=== PATIENT | male | born 2000 | race Caucasian/White ===

== ENCOUNTER 2021-12-31 23:16 | Emergency (ER) | payer OTHER ==
[~2021-12-31] VITALS: Ht 180.3 cm; Wt 102.1 kg
--- NOTE | 2021-12-31 23:30 | NUR ---
[id number] FROM [facility] C/O ETOH AND MISSED STEP FELL, LAC TO BACK OF HEAD. PT A/OX3;. TOLERATING R/A WELL WITH NO SOB.
--- NOTE | 2021-12-31 23:32 | NUR ---
DR. DAVID HERRERA AT PT'S BEDSIDE
[2021-12-31] MEDS ORDERED: LIDOCAINE MPF 1%-EPI 1:200,000 30 ML VIAL IJ ONE (23:38)
[2021-12-31] MEDS ORDERED: LIDOCAINE 1%-EPI 1:100,000 20 ML VIAL ONE (23:47)
[2021-12-31] MEDS ORDERED: IBUPROFEN 600 MG TABLET ONE (23:47)
[2021-12-31] MEDS ORDERED: ACETAMINOPHEN ES 500 MG TABLET ONE (23:47)
[2021-12-31] MEDS ORDERED: TDAP [DIPH/PERTUSSIS/TET] 0.5 ML VIAL IM ONE (23:48)
--- NOTE | 2021-12-31 23:50 | NUR ---
PT RETURNED TO ER BED [address]
--- NOTE | 2021-12-31 23:52 | NUR ---
[facility] AT PT'S BEDSIDE DOING WOUND CARE LAC ON PATIENT'S HEAD
--- NOTE | 2021-12-31 23:53 | NUR ---
[facility] AT PT'S BEDSIDE
[2022-01-01] MEDS: ACETAMINOPHEN ES 500 MG TABLET PO ONE (00:01)
[2022-01-01] MEDS: IBUPROFEN 600 MG TABLET PO ONE (00:01)
[2022-01-01] MEDS: LIDOCAINE 1%-EPI 1:100,000 20 ML VIAL TP ONE (00:01)
[2022-01-01] MEDS: TDAP [DIPH/PERTUSSIS/TET] 0.5 ML VIAL IM ONE (00:01)
--- NOTE | 2022-01-01 00:38 | NUR ---
Patient discharged to home in stable condition. Written and verbal after care instructions given. Patient verbalizes understanding of instruction. Pt ambulatory with a steady gait. Pt is released to his parents. Instructions given to his brother in law as well as per pt request.
--- NOTE | 2022-01-01 00:38 | NUR ---
[facility] INCIDENT NUMBER [id number]
[2022-01-01 00:40] VITALS: BP 136/69
== END 2022-01-01 00:40 | disposition home or self-care (01) ==
LOC: ER 23:16
DX: S01.01XA Laceration without foreign body of scalp, initial encounter (principal); R51.9 Headache, unspecified; J45.909 Unspecified asthma, uncomplicated; F41.9 Anxiety disorder, unspecified; Z60.2 Problems related to living alone; W01.0XXA Fall on same level from slipping, tripping and stumbling without subsequent striking against object, initial encounter; Y93.89 Activity, other specified; Y92.89 Other specified places as the place of occurrence of the external cause; Y99.8 Other external cause status
CPT/HCPCS: 12002; 70450; 90471; 90715; 99284; J3490 ×2